=== PATIENT | male | born 1970 | race Caucasian/White ===

== ENCOUNTER → 2023-05-23 15:42 | Outpatient (CLI) | payer BC, SELFPAY ==
[2023-05-23 13:09] LABS: Basophils # 0.1 K/mm3 (0-0.2); Basophils % 0.7 % (0.1-2.0); Eosinophils # 0.1 K/mm3 (0.0-0.4); Eosinophils % 1.6 % (0.1-12.0); Hematocrit 49.5 % (42.0-52.0); Hemoglobin 16.6 g/dL (14.1-18.0); Lymphocytes # 1.7 K/mm3 (0.7-4.5); Lymphocytes % 24.4 % (10-50); Mean Corpuscular HGB Conc 33.5 g/dL (31.8-35.4); Mean Corpuscular Volume 89.5 fl (80-94); Mean Platelet Volume 10.7 fl (7.4-10.4); Monocytes # 0.5 K/mm3 (0.1-1.0); Monocytes % 7.1 % (1.7-9.3); Neutrophils # 4.6 K/mm3 (1.8-7.8); Neutrophils % 66.2 % (37.0-80.0); Platelet Count 252 K/mm3 (142-424); Red Blood Count 5.53 M/mm3 (4.60-6.20); Red Cell Distribution Width 13.1 % (11.5-17.5)
[2023-05-23 13:47] LABS: Alanine Aminotransferase 27 U/L (12-78); Albumin Level 4.2 g/dl (3.5-5.0); Albumin/Globulin Ratio 1.8 (1.1-1.8); Alkaline Phosphatase 152 U/L (38-126); Anion Gap 15.4 mEq/L (5-15); Aspartate Amino Transferase 30 U/L (17-59); Bilirubin,Total 1.3 mg/dl (0.2-1.3); Blood Urea Nitrogen 11 mg/dl (9-20); Calcium 8.9 mg/dl (8.4-10.2); Carbon Dioxide 23 mmol/L (22.0-30.0); Chloride 106 mmol/L (98-107); Chol/HDL Ratio 4.5 (1-3.5); Cholesterol 172 mg/dl (140-200); Estimated Glomerular Filt Rate 78 ml/min (>60); GFR (African American) 95 ML/MIN (>60); Globulin 2.4 g/dL (1.3-3.2); Glucose 88 mg/dl (74-100); HDL Cholesterol 38 mg/dl (40-60); Potassium 4.4 mmoL/L (3.5-5.1); Sodium 140 mmol/L (136-145); Total Protein,Serum 6.6 g/dl (6.3-8.2); Triglycerides 127 mg/dl (30-150); VLDL Cholesterol 25 mg/dL (0-40)
[2023-05-23 13:59] LABS: Direct LDL Cholesterol 101.98 mg/dL (100-129)
[2023-05-23 14:03] LABS: Free T4 (Free Thyroxine) 1.38 ng/dl (0.78-2.19)
[2023-05-23 14:06] LABS: 25-OH Vitamin D, Total 43.9 ng/mL (30-100)
[2023-05-23 14:21] LABS: Prostate Specific Ag Screen 1.4 ng/ml (0.0-4.0); Thyroid Stimulating Hormone 0.02 uIU/mL (0.465-4.68)
[2023-05-23 21:29] LABS: Hemoglobin A1C 5.7 % (4.0-6.0)
[2023-05-24 10:30] LABS: HIV Screen 4th Generation wRfx Non Reactive (Non Reactive)
[2023-05-24 12:01] LABS: HCV Ab Non Reactive (Non Reactive)
== END ==
PROVIDERS: PCP Internal Medicine; Visit Provider Internal Medicine
DX: Z00.00 Encounter for general adult medical examination without abnormal findings (principal); Z11.59 Encounter for screening for other viral diseases; Z11.4 Encounter for screening for human immunodeficiency virus [HIV]; Z12.5 Encounter for screening for malignant neoplasm of prostate
CPT/HCPCS: 80053; 80061; 82306; 83036; 84439; 84443; 85025; 86703; G0103; G0432

== ENCOUNTER → 2023-06-01 07:55 | Outpatient (CLI) | payer BC, SELFPAY ==
--- NOTE | 2023-06-01 08:19 | US_ITS ---
FINAL REPORT CLINICAL HISTORY: Hx of tobacco use, recommended screening COMPARISON: None FINDINGS: Sonographic images were obtained of the abdominal aorta. The abdominal aorta measures up to 2 cm in greatest dimensions. The common iliac arteries are within normal limits. IMPRESSION: No evidence of aortic aneurysm. Reviewed, Interpreted and Dictated by Hiren Antonio III, MD Transcribed by Alyce Macias Authenticated and [facility]
== END ==
PROVIDERS: PCP Internal Medicine; Visit Provider Internal Medicine
DX: Z13.6 Encounter for screening for cardiovascular disorders (principal)
CPT/HCPCS: 76705

== ENCOUNTER 2023-11-30 13:10 | Outpatient (CLI) | payer BC, SELFPAY ==
[2023-11-30 14:08] LABS: Free T4 (Free Thyroxine) 2.22 ng/dl (0.78-2.19)
[2023-11-30 14:22] LABS: Thyroid Stimulating Hormone < 0.02 uIU/mL (0.465-4.68)
== END 2023-11-30 23:59 ==
LOC: LAB.DROPOF 13:10
PROVIDERS: PCP Internal Medicine; Visit Provider Internal Medicine
DX: E03.9 Hypothyroidism, unspecified (principal)
CPT/HCPCS: 84439; 84443

== ENCOUNTER 2024-07-17 09:30 | Outpatient (CLI) | payer BC, SELFPAY ==
[2024-07-17 15:55] LABS: MANUAL DIFFERENTIAL MANUAL DIFFERENTIAL (MANUAL DIFF)
[2024-07-17 16:18] LABS: Basophils % 0.6 % (0.1-2.0); Eosinophils # 0.1 K/mm3 (0.0-0.4); Eosinophils % 2.2 % (0.1-12.0); Hematocrit 51.1 % (42.0-52.0); Hemoglobin 16.7 g/dL (14.1-18.0); Lymphocytes # 1.6 K/mm3 (0.7-4.5); Lymphocytes % 27.5 % (10-50); Mean Corpuscular HGB Conc 32.7 g/dL (31.8-35.4); Mean Corpuscular Hemoglobin 29.7 pg (27.0-31.2); Mean Corpuscular Volume 90.8 fl (80-94); Mean Platelet Volume 10.8 fl (7.4-10.4); Monocytes # 0.6 K/mm3 (0.1-1.0); Monocytes % 9.3 % (1.7-9.3); Neutrophils # 3.5 K/mm3 (1.8-7.8); Neutrophils % 60.4 % (37.0-80.0); Platelet Count 237 K/mm3 (142-424); Red Blood Count 5.63 M/mm3 (4.60-6.20); Red Cell Distribution Width 13.5 % (11.5-17.5); White Blood Count 5.9 K/mm3 (4.8-10.8)
[2024-07-17 16:41] LABS: Alanine Aminotransferase 30 U/L (12-78); Albumin Level 4.2 g/dl (3.5-5.0); Albumin/Globulin Ratio 1.7 (1.1-1.8); Alkaline Phosphatase 143 U/L (38-126); Anion Gap 12.8 mEq/L (5-15); Aspartate Amino Transferase 35 U/L (17-59); Bilirubin,Total 1.4 mg/dl (0.2-1.3); Blood Urea Nitrogen 10 mg/dl (9-20); Calcium 9.3 mg/dl (8.4-10.2); Carbon Dioxide 26 mmol/L (22.0-30.0); Chloride 106 mmol/L (98-107); Chol/HDL Ratio 3.7 (1-3.5); Cholesterol 166 mg/dl (140-200); Estimated Glomerular Filt Rate 70 ml/min (>60); GFR (African American) 84 ML/MIN (>60); Globulin 2.5 g/dL (1.3-3.2); Glucose 75 mg/dl (74-100); HDL Cholesterol 45 mg/dl (40-60); Potassium 4.8 mmoL/L (3.5-5.1); Sodium 140 mmol/L (136-145); Total Protein,Serum 6.7 g/dl (6.3-8.2); Triglycerides 115 mg/dl (30-150); VLDL Cholesterol 23 mg/dL (0-40)
[2024-07-17 16:46] LABS: Eosinophils % 4 % (0-3); Lymphocytes % 31 % (10-50); Monocytes % 11 % (2-9); Neutrophils % 54 % (42-76); Total Cells Counted 100
[2024-07-17 16:47] LABS: Burr Cells 1+; Platelet Estimate Normal; Poikilocytosis 1+
[2024-07-17 16:52] LABS: Direct LDL Cholesterol 108.28 mg/dL (100-129)
[2024-07-17 16:58] LABS: Free T4 (Free Thyroxine) 2.56 ng/dl (0.78-2.19)
[2024-07-17 17:14] LABS: Thyroid Stimulating Hormone < 0.02 uIU/mL (0.465-4.68)
== END 2024-07-17 23:59 | disposition home or self-care (01) ==
LOC: LAB.DROPOF 07-18 12:42
PROVIDERS: PCP Internal Medicine; Visit Provider Internal Medicine
DX: E78.5 Hyperlipidemia, unspecified (principal); E03.9 Hypothyroidism, unspecified
CPT/HCPCS: 80053; 80061; 84439; 84443; 85007; 85014; 85018; 85048; 85049

== ENCOUNTER 2024-09-22 13:50 | Outpatient (CLI) | payer BC, SELFPAY | END 2024-09-22 23:59 | disposition home or self-care (01) | LOC: LAB.DROPOF 13:51 | PROVIDERS: PCP Nurse Practitioner Family; Visit Provider Nurse Practitioner Family | DX: R53.83 Other fatigue (principal) | CPT/HCPCS: 87070 ==

== ENCOUNTER 2024-10-30 16:21 | Outpatient (CLI) | payer BC, SELFPAY ==
--- NOTE | 2024-10-30 16:24 | XR_ITS ---
FINAL REPORT CLINICAL HISTORY: Low back pain FINDINGS: No fracture is identified. There is advanced degenerative disc disease at L4-5. Mild degenerative disc disease is seen at the other levels. There is probable neuroforaminal narrowing at L5-S1. Alignment is normal. IMPRESSION: Moderate degenerative changes without fracture. Consider MRI follow-up. Reviewed, Interpreted and Dictated by Jody Pacheco MD Transcribed by Genevieve León Authenticated and [facility]
--- NOTE | 2024-10-30 16:24 | XR_ITS ---
FINAL REPORT CLINICAL HISTORY: Low back pain FINDINGS: SINGLE VIEW PELVIS A single view of the pelvis was obtained. There is no acute fracture or dislocation. Soft tissues are unremarkable. IMPRESSION: No acute bony abnormality. Reviewed, Interpreted and Dictated by Jody Pacheco MD Transcribed by Genevieve León Authenticated and [facility]
[2024-10-30 18:40] LABS: Prostate Specific Ag Screen 2.1 ng/ml (0.0-4.0)
== END 2024-10-30 23:59 | disposition home or self-care (01) ==
LOC: RAD 16:22
PROVIDERS: PCP Internal Medicine; Visit Provider Internal Medicine
DX: M54.50 Low back pain, unspecified (principal); R33.9 Retention of urine, unspecified
CPT/HCPCS: 72100; 72170; G0103

== ENCOUNTER 2024-11-07 13:42 | Outpatient (RCR) | payer BC, SELFPAY ==
--- NOTE | 2024-11-07 14:38 | HMH.PTOPEV ---
PT Outpatient Evaluation Rehab PT Outpatient Evaluation Start: 11/07/24 14:27 Freq: Status: Active Protocol: Document 11/07/24 14:27 HENRY (Rec: 11/07/24 14:38 [email or web address] [id number]) E-signed By Ubaldo Limon, PT Outpatient Therapy Subjective History Subjective History The pt is a 54 yom who presents to [facility] outpatient Physical Therapy with complaints of mid to low back pain. He reports the pain began about 2 months ago and his first thought was that it could be prostate cancer. He reports that he had his PSA checked and it was not elevated. He reports that what he is experiencing is not pain but more of a tightness. He reports that he does not think he even needs PT. He reports that he is having an MRI done later today. He denies a remarkable PMH. New diagnosis of cancer in past 12 No months? Chief Complaint Stiff Symptoms Relieved By Heat Prior Functional Limitations None Current Functional Limitations None Level of pain today (0-10) 0 Pain scale - at its best (0-10) 0 Pain scale - at its worst (0-10) 0 Lumbopelvic Eval Posture Thoracic Spine Posture Standing Position Neutral Lumbar Spine Posture Standing Position Neutral Assistive device Assistive Devices None / NA Palapation tenderness bilateral thoracic spinal tenderness Yes: 1/ to T10-T12 Accessory Movement T11 bilateral T12 bilateral Manual Muscle Test Bilateral Knee Extension Strength Grade 5 Normal Knee Flexion Strength Grade 5 Normal Hip Flexion Strength Grade 5 Normal Hip Abduction Strength Grade 5 Normal Hip Adduction Strength Grade 5 Normal Hip Extension Strength Grade 5 Normal DTR Rt Patellar 2+ Lt Patellar 2+ Rt Gastroc/Soleus 2+ Lt Gastroc/Soleus 2+ Oswestry Index Section 1 Pain Intensity The pain comes and goes and is very mild Section 2 Personal Care (Washing,Dresing) change my way of washing or dressing in order to avoid pain Section 3 Lifting I can lift heavy weights without extra pain Section 4 Walking I have no pain when walking Section 5 Sitting I can sit in any chair for as long as I like Section 6 Standing I can stand as long as I want without pain Section 7 Sleeping I get no pain in bed Section 8 Social Life My social life is normal and gives me no extra pain Section 9 Traveling I get no pain when traveling Section 10 Changing Degreee of Pain My pain fluctuates, but overall is definitely getting better Score and Risk Level Oswestry Sc 1 Oswestry Risk Level No Disability Outpatient Therapy Assessment Prognosis Rehab Potential Innapropriate for Skilled Therapy Comment Pt presents with no functional limitations. Skilled PT is not indicated for this patient . Pt issued HEP with stretches and instructed if pain gets worse to get another referral. Outpatient Therapy Plan of Care Frequency Times per week 1 Duration Number of Weeks 1 Addendums This patient is a candidate for social No or vocational rehab? Patient/Guardian verbally acknowledges Yes understanding of treatment program and consents to further treatment? Patient/Guardian verbally acknowledges Yes understanding of diagnosis, prognosis and goals for treatment? Eval Complexity PT Charges 42110 - Low Complexity Shoulder/Elbow Eval Shoulder Objective Measurements Elbow Objective Measurements PHYSICIAN CERTIFICATION: I certify the specified therapy services for Tyson Arias are required, authorized, and reviewed every 30 days.
== END 2024-11-07 23:59 | disposition home or self-care (01) ==
LOC: PT 13:42
PROVIDERS: PCP Internal Medicine; Visit Provider Internal Medicine
DX: M54.50 Low back pain, unspecified (principal)
CPT/HCPCS: 97163

== ENCOUNTER 2024-11-07 16:42 | Outpatient (CLI) | payer BC, SELFPAY ==
--- NOTE | 2024-11-07 16:43 | MR_ITS ---
PROCEDURE INFORMATION: Exam: MR Lumbar Spine Without Contrast Exam date and time: 11/07/2024 5:00 PM Age: 54 years old Clinical indication: Low back pain TECHNIQUE: Imaging protocol: Magnetic resonance imaging of the lumbar spine without contrast. COMPARISON: CR XR LUMBAR SPINE 2-3V 10/30/2024 4:25 PM FINDINGS: Bones/joints: Vertebral body height and alignment are within normal limits. Endplate changes are noted at L4-L5. There is disc desiccation at L4-L5. Spondylosis is noted with disc bulging and facet arthropathy. Spinal cord: Visualized cord, conus medullaris and cauda equina are unremarkable without compression. L1-L2: No significant disc bulge or herniation. No severe spinal canal stenosis. No significant neural foraminal narrowing. L2-L3: No significant disc bulge or herniation. No severe spinal canal stenosis. No significant neural foraminal narrowing. L3-L4: At L3-L4 there is a left foraminal protrusion causing mild to moderate neural foraminal stenosis. There is no significant canal narrowing. L4-L5: At L4-L5 there is broad-based disc bulge ligament thickening and facet arthropathy causing moderate canal narrowing and neural foraminal stenosis, worse on the right. L5-S1: At L5-S1 there is broad-based disc bulge with facet arthropathy with concentric narrowing of the canal around the tapering thecal sac. There is moderate neural foraminal narrowing. Soft tissues: Unremarkable. IMPRESSION: Low lumbar spondylosis as described.
== END 2024-11-07 23:59 | disposition home or self-care (01) ==
LOC: RAD 16:43
PROVIDERS: PCP Internal Medicine; Visit Provider Internal Medicine
DX: M54.50 Low back pain, unspecified (principal)
CPT/HCPCS: 72148